=== PATIENT | female | born 1980 | race Caucasian/White ===

== ENCOUNTER → 2024-03-07 14:09 | Outpatient (REF) | payer BC, SELFPAY | LOC: RAD 14:09 | PROVIDERS: ATTENDING PHYSICIAN Nurse Practitioner Family | DX: M54.12 Radiculopathy, cervical region (principal) | CPT/HCPCS: 72052 ==

== ENCOUNTER 2024-03-16 08:38 | Emergency (ER) | payer BC, SELFPAY ==
[2024-03-16 08:48] VITALS: BP 135/79
[2024-03-16 08:54] VITALS: BP 117/84
[2024-03-16 09:15] VITALS: BMI 33.0
--- NOTE | 2024-03-16 09:50 | ED.GENMED ---
History of Present Illness
General
Chief Complaint: Musculo-Skeletal Complaint
Time Seen by Provider: 03/16/24 09:32
History of Present Illness
History of Present Illness:
Patient is a 43-year-old woman with history of neck pain, migraines, cervical radiculopathy presenting to the emergency department with acute on chronic pain. Patient states that 10 years ago she was diagnosed with radiculopathy at C5-C6. She has
had steroid injections, physical therapy and the pain has been mostly under control. However 3 weeks ago she noticed that she was leaning more on her left elbow while she was trying to play with her dog and noticed that it worsened her pain. She
did try some exercises at home which did not relieve it. She went to her PCP and had an x-ray done that showed her chronic C5-C6 radiculopathy. However over the past 2 weeks the pain has worsened and now she is having paresthesias to her left
thumb. She was on the Medrol Dosepak and finished it 3 days ago. She is on a muscle relaxer as well as naproxen with some relief. She had her sister who is also a physical therapist evaluate patient and she did notice that the pain was so
significant which is why she came here. Patient does state that she has a physical therapy appointment tomorrow. No recent injections. No fevers or chills. No headache. No nausea vomiting.
Past History
Past History
ED Past Medical History: Other (Migraine headaches, cervical disc disease, colonoscopy)
ED Past Surgical History: None
Social History
Tobacco: Non-smoker
Alcohol: Occasional
Drug: None
Phy Exam
Physical Exam
Physical Exam:
GENERAL: in no acute distress
HEENT: normocephalic, extraocular movements intact, moist oral mucosa
NECK: normal inspection, no C-spine tenderness, pain with range of motion and flexing towards the right side
RESPIRATORY: no respiratory distress, clear to auscultation bilaterally
CARDIOVASCULAR: regular rate and rhythm
ABDOMEN/: soft, non-distended, non-tender to palpation, no rebound or guarding
EXTREMITIES: non-tender, no edema/swelling
NEUROLOGIC: awake and alert, moves all extremities, paresthesias to the left thumb and left forearm with mild sensory deficits over the forearm and thumb, equal strength in upper and lower extremities
SKIN: warm
Course
Orders/Labs/Results
Orders:
Orders
03/16/24 09:47
[address] [CT Cervical Spine W/o Iv Contr] Urgent
Comment:
Reason For Exam: neck pain, c5/6 parathesia
Acetaminophen [Tylenol] 1,000 mg PO NOW STA
Dexamethasone [Decadron] 10 mg PO NOW STA
Ketorolac [Toradol] 15 mg IM NOW STA
03/16/24 10:00
Lidocaine [Lidocaine 4% Patch] 1 patch TOPICAL DAILY
Apply Lidocaine patch(s) to:: neck
Vital Signs
Initial and Last Documented VS:
Initial Vital Signs
Temp Pulse Resp BP Pulse Ox
98.9 F 81 20 135/79 99
03/16/24 08:48 03/16/24 08:48 03/16/24 08:48 03/16/24 08:48 03/16/24 08:48
Last Documented Vital Signs
Temp Pulse Resp BP Pulse Ox
98.2 F 76 16 117/84 97
03/16/24 08:54 03/16/24 08:54 03/16/24 08:54 03/16/24 08:54 03/16/24 08:54
MDM/Problems Addressed
Differential Diagnosis Includes:
Patient is a 43-year-old woman with history of chronic neck pain/cervical radiculopathy presenting to the emergency department acute on chronic pain for the past 3 weeks. Vitals unremarkable and exam does show some mild sensory changes in the left
thumb and forearm consistent with a C6 dermatome which is patient's known radiculopathy. No sensory deficits or motor deficits elsewhere. History and exam is consistent with radiculopathy. Given the change in symptoms we will obtain CT scan for
evaluation. Will pain control.
*Critical Care Note
Total Time (30-74mins, 75-104mins- exclusive of procedures): Not Applicable
Update Note
Update Note:
On reevaluation pain has slightly improved. CT scan does show foraminal stenosis as well as herniated disc. Will give patient neurosurgery follow-up as she has tried conservative treatment. I did message them so they could help with follow-up.
Strict return precautions given. Will discharge at this time.
ED Attending Note
-
Portions of this chart may have been created with voice recognition software.� Occasional wrong word or��sound alike� substitutions may have occurred due to the inherent limitations of voice recognition software.
Discharge Plan
Departure
Patient Disposition: Home (Routine Discharge)
Date of Disposition: 03/16/24
Time of Disposition: 11:06
Patient with high blood pressure during this ER visit?: No
Discharge Problem:
Foraminal stenosis of cervical region, Cervical herniated disc
Instructions: Herniated Disc (DC)
Prescriptions:
No Action
naproxen sodium 550 MG tablet
550 mg PO TIDPRN PRN (Reason: migraine)
escitalopram oxalate 5 MG tablet
5 mg PO DAILY
Referrals:
Cristiano Darden CRNP [Family Provider] -
Gab Ontiveros DO [Active] -
Activity Restrictions/Additional Instructions:
IMPRESSION:There is degenerative disc disease at C5-6 with moderate loss of disc stature and moderate broad-based posterior bulging of the intervertebral disc which along with degenerative spurring off the adjacent endplates posteriorly is
associated with mild cord impingement, mild right C6 foraminal stenosis and moderate-severe left C6 foraminal stenosis
We did treat her pain with Toradol and Decadron here. Please call the neurosurgeon above or any spine surgeon for follow-up.
Interventions
Interventions:
*Risk Screen - Suicide Last Done: 03/16/24 08:54
*General Assessment Last Done: 03/16/24 09:14
*Neglect/Abuse Screening Last Done: 03/16/24 08:54
ED- Fall Risk Assessment Last Done: 03/16/24 09:15
*ED COVID-19 Vaccine History Last Done: 03/16/24 09:14
ED-Musculoskeletal Assessment Last Done: 03/16/24 09:16
Discharge Date and Time
Print Language: PALESTINIAN
[2024-03-16] MEDS: LIDOCAINE 4% PATCH 1 PATCH TOPICAL (09:51)
[2024-03-16] MEDS: TORADOL 15 MG IM (09:52)
[2024-03-16] MEDS: TYLENOL 1000 MG PO (09:52)
[2024-03-16] MEDS: DECADRON 10 MG PO (09:52)
[2024-03-16 11:12] VITALS: BP 113/66
== END 2024-03-16 11:13 | disposition home or self-care (01) ==
LOC: EMR 08:38
PROVIDERS: EMERGENCY PHYSICIAN Student in an Organized Health Care Education/Training Program; FAMILY PHYSICIAN Nurse Practitioner Family
DX: M48.02 Spinal stenosis, cervical region (principal); M50.222 Other cervical disc displacement at C5-C6 level
CPT/HCPCS: 99284; 96372; 72125

== ENCOUNTER → 2024-03-28 16:12 | Outpatient (REF) | payer BC, SELFPAY | LOC: WDC 16:12 | PROVIDERS: ATTENDING PHYSICIAN Internal Medicine | DX: Z12.31 Encounter for screening mammogram for malignant neoplasm of breast (principal) | CPT/HCPCS: 77063; 77067 ==

== ENCOUNTER → 2025-03-30 16:40 | Outpatient (REF) | payer BC, SELFPAY | LOC: WDC 16:40 | PROVIDERS: ATTENDING PHYSICIAN Internal Medicine | DX: Z12.31 Encounter for screening mammogram for malignant neoplasm of breast (principal) | CPT/HCPCS: 77063; 77067 ==